=== PATIENT | male | born 1980 | race Caucasian/White ===

== ENCOUNTER → 2019-03-17 18:49 | Outpatient (CLI) | payer OTHER, SELFPAY ==
--- NOTE | 2019-03-17 | XR_ITS ---
XR ribs LT min 3V w CXR1V HISTORY: Left-sided rib pain ORDERING PHYSICIAN: Jo Chapman APRN PATIENT AGE: 38 years Comparison: None FINDINGS: A frontal view of the chest shows no acute finding. Multiple views of the Left ribs were obtained. No fracture or dislocation. No lytic or blastic change. IMPRESSION: Negative RIBS. If pain persists, consider follow-up exam in 7-[address] with 3-D reformats.
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
== END ==
PROVIDERS: PCP Nurse Practitioner Family; Visit Provider Nurse Practitioner Family
DX: S23.41XA Sprain of ribs, initial encounter (principal)
CPT/HCPCS: 71101

== ENCOUNTER 2020-06-05 16:03 | Emergency (ER) | payer MEDICAID, SELFPAY ==
[2020-06-05 16:04] VITALS: BP 163/93; PULSE 50; RESP 18; TEMP 36.8; O2SAT 98; BMI 29.5
--- NOTE | 2020-06-05 16:22 | HMH.EDGENADL ---
ED Disposition Clinical Impression: Right ureteral calculus, Nephrolithiasis Disposition: Home, Self-Care Condition on Discharge: Good Instructions: DI for Kidney Stones Additional Instructions: Additional instructions for KIDNEY STONE (URETERAL CALCULUS): See your physician as soon as possible for further evaluation. Drink plenty of fluids. Strain your urine and save any stones you catch. Return immediately if you develop a fever or have uncontrollable vomiting or uncontrollable pain. Additional instructions for CONTROLLED SUBSTANCES: You have been prescribed a medication that is a controlled substance. Controlled substances include pain medications known as opiates and sedative nerve medications known as benzodiazepines. Tramadol, fioricet, and gabapentin are also controlled substances. Some common opiates include: Codeine (such as Tylenol #3) Hydrocodone (Vicodin, Lortab, Lorcet, [place]) Oxycodone (Percocet, Percodan, Oxycodone, Oxy IR) Some common benzodiazepines include: Diazepam (Valium) Lorazepam (Ativan) Alprazolam (Xanax) Clonazepam (Klonopin) Oxazepam (Serax) All of these controlled substances are highly addictive and frequently abused. Misuse can and frequently does lead to addiction as well as overdose and . Medication should be stored in a locked cabinet or other secure storage unit. Do not store the medication in a motor vehicle. Short term supplies, 3 days or less, are prescribed because of the highly addictive nature of the medication. Any of the controlled substance medication NOT taken should be disposed of properly and NOT SAVED. The recommended method of disposing of unused medications is: Place the medicines in a sealable plastic bag. If the medicine is a solid, crush it or add water to dissolve it. Add something undesirable (cat litter, coffee grounds, etc.) Dispose of sealed bag in household trash Do not flush or pour unused medicines down a sink or drain. Controlled substances should not be shared, given away or sold. Because of the addictive nature and frequent abuse, these medications are sometimes stolen. These medications should be kept in a safe place where they cannot be stolen. Do not keep them in your car or purse. Lost or stolen prescriptions for controlled substances WILL NOT BE REFILLED in this emergency department, regardless of whether a police report was filed. Prescriptions: Oxycodone HCl/Acetaminophen [Percocet 7.5-325 mg Tablet] 1 each PO Q6HP PRN #20 tablet PRN Reason: Severe Pain Transmission Status: Sent to [facility] Tamsulosin HCl [Flomax 0.4mg capsule] 0.4 mg PO HS #10 cap.er.24h Transmission Status: Sent to [facility] Ondansetron [Zofran 4mg ODT] 4 mg PO TIDP PRN #10 tab.rapdis PRN Reason: Nausea And Vomiting Transmission Status: Pending to [facility] Referrals: PCP,No [Primary Care Provider] - Urbano Kauffman MD [Staff Physician] - - Critical Care Critical Care Time: No Attestation: On 06/05/20, the high probability of a clinically significant, sudden or life threatening deterioration of the following system(s) required my full and direct attention, intervention and personal management. The time I documented below is in addition to time spent performing reported procedures but includes the following listed in this critical care notation. Medical Decision Making - Medical Records Medical records reviewed: Yes: I reviewed the patient's medical records. - Bryan Inquiry Pt receiving controlled substance: Yes Bryan was queried for this patient: No Reason not queried -: Emergent pt cond-no time Risks and benefits of using a controlled substance: were not discussed with pt by me Vital Signs: 06/05/20 16:04 Temperature 98.2 F Temperature Source Oral Pulse Rate [Right] 50 L Respiratory Rate 18 Blood Pressure [Right Arm] 163/93 H Blood Pressure Mean [Right Arm] 116 02 Sat by Pulse Oximetry 98
--- NOTE | 2020-06-05 16:30 | CT_ITS ---
PROCEDURE: CT ABDOMEN PELVIS WO CON CLINICAL INDICATION: flank pain Right flank pain COMPARISON: ABDPELWO CT abdomen pelvis wo con from 04/21/2018 TECHNIQUE: Axial images obtained with sagittal and coronal reformats. All CT scans at the facility use one or more dose reduction, viz: automated exposure control, ma/kV adjustment per patient size (including targeted exams where dose is matched to indication, i.e. head), or iterative reconstruction technique. FINDINGS: LOWER THORAX: No acute finding ABDOMEN & PELVIS: The liver, spleen, adrenal glands, and pancreas have an unremarkable unenhanced appearance. There are numerous bilateral renal calculi measuring up to 5 mm in the mid polar region on the right and 10 mm in the lower pole on the left. There is a 2 cm hypodense nodule in the mid polar region of the right kidney consistent with a cyst with some milk of calcium layering posteriorly. There is moderate right hydronephrosis an ureteral dilatation secondary to a 8 mm stone in the mid aspect of the right ureter at the L3-L4 level. Unremarkable appendix. No intestinal obstruction or free air. There is mild thickening of the urinary bladder which may be due to nondistention versus cystitis no acute bony anomaly. IMPRESSION: 1. 8 mm stone in the mid aspect of the right ureter with moderate right hydronephrosis and proximal hydroureter. 2. Bilateral renal calculi with right renal cyst containing a calcification or milk of calcium posteriorly. 3. Mildly thickened urinary bladder wall nonspecific Dictated by: Thomas Perry MD 06/06/2020 07:37 Electronically signed by Thomas Perry MD in [place] 06/06/2020 07:37
[2020-06-05 16:46] LABS: Basophils % 0.2 % (0.1-2.0); Eosinophils # 0.1 K/mm3 (0.0-0.4); Eosinophils % 0.8 % (0.1-12.0); Hematocrit 44.1 % (42.0-52.0); Hemoglobin 15.9 g/dL (14.1-18.0); Lymphocytes # 1.6 K/mm3 (0.7-4.5); Lymphocytes % 11.4 % (10-50); Mean Corpuscular Volume 83.4 fl (80-94); Mean Platelet Volume 8.5 fl (7.4-10.4); Monocytes # 0.4 K/mm3 (0.1-1.0); Monocytes % 2.7 % (1.7-9.3); Neutrophils # 11.9 K/mm3 (1.8-7.8); Platelet Count 254 K/mm3 (142-424); Red Blood Count 5.28 M/mm3 (4.60-6.20); Red Cell Distribution Width 13.2 % (11.5-17.5); White Blood Count 14.1 K/mm3 (4.8-10.8)
[2020-06-05 16:47] LABS: MANUAL DIFFERENTIAL MANUAL DIFFERENTIAL (MANUAL DIFF)
[2020-06-05 16:48] LABS: Chloride 104 mmol/L (98-107)
[2020-06-05 16:49] LABS: Sodium 140 mmol/L (136-145)
[2020-06-05 16:51] LABS: Alanine Aminotransferase 17 U/L (12-78); Alkaline Phosphatase 90 U/L (38-126); Aspartate Amino Transferase 27 U/L (17-59); Bilirubin,Total 0.7 mg/dl (0.2-1.3); Blood Urea Nitrogen 16 mg/dl (9-20); Creatinine Clearance Estimated 117 mL/min (50-200); Estimated Glomerular Filt Rate 75 ml/min (>60); GFR (African American) 91 ML/MIN (>60)
[2020-06-05 16:52] LABS: Albumin Level 4.7 g/dl (3.5-5.0); Albumin/Globulin Ratio 1.3 (1.1-1.8); Calcium 9.9 mg/dl (8.4-10.2); Carbon Dioxide 29 mmol/L (22.0-30.0); Globulin 3.6 g/dL (1.3-3.2); Glucose 120 mg/dl (74-100); Lipase 70 U/L (23-300); Total Protein,Serum 8.3 g/dl (6.3-8.2)
[2020-06-05 16:56] LABS: Lymphocytes % 13 % (10-50); Monocytes % 3 % (2-9); Neutrophils % 84 % (42-76); Platelet Estimate Normal; RBC Morphology Normal; Total Cells Counted 100
[2020-06-05 18:08] VITALS: BP 143/85; PULSE 80; RESP 18; TEMP 36.6; O2SAT 98
== END 2020-06-05 18:09 | disposition home or self-care (01) ==
PROVIDERS: Emergency Provider Emergency Medicine
DX: N20.0 Calculus of kidney (principal); N20.1 Calculus of ureter; Z87.442 Personal history of urinary calculi; Z87.891 Personal history of nicotine dependence; Z79.899 Other long term (current) drug therapy
CPT/HCPCS: 74176; 80053; 83690; 85007; 85025; 96365; 96375; 99283; J2405

== ENCOUNTER 2020-07-23 00:09 | Observation (INO) | payer MEDICAID, SELFPAY ==
[2020-07-23] VITALS (21 sets, daily range): BP systolic 108–159; BP diastolic 66–95; PULSE 49–78; RESP 12–16; TEMP 36.2–37.1; O2SAT 95–100; BMI 31.3; BMI 27.7; BMI 27.5
--- NOTE | 2020-07-23 00:25 | CT_ITS ---
PROCEDURE: CT ABDOMEN PELVIS WO CON CLINICAL INDICATION: right flank pain COMPARISON: CT CT ABDOMEN PELVIS WO CON from 06/05/2020 TECHNIQUE: Axial images obtained with sagittal and coronal reformats. All CT scans at the facility use one or more dose reduction, viz: automated exposure control, ma/kV adjustment per patient size (including targeted exams where dose is matched to indication, i.e. head), or iterative reconstruction technique. FINDINGS: LOWER THORAX: No acute finding ABDOMEN & PELVIS: The liver, spleen, adrenal glands, and pancreas have an unremarkable appearance as does the gallbladder. There is moderate right hydronephrosis and hydroureter secondary to a 8 mm stone at the right ureterovesical junction. This may actually represent a cluster of small stones with a cluster measuring total of 8 mm. There is mild thickening of the urinary bladder wall nonspecific. There is bilateral nephrolithiasis with a 4 mm stone in the mid polar region of the right kidney and multiple stones in the left kidney the largest at 9 mm. There is a 2.7 cm right renal cyst. Unremarkable appendix. No intestinal obstruction or free air. No evidence of diverticulitis. There are few colonic diverticula. No acute bony findings. IMPRESSION: Bilateral nephrolithiasis with moderate right hydronephrosis and hydroureter secondary to a 9 mm stone or cluster of stones at the ureterovesical junction. Previously the stone on the right was in the mid ureter region. Dictated by: Thomas Perry MD 07/23/2020 07:06 Thomas Perry MD in [place] 07/23/2020 07:06
[2020-07-23 00:38] LABS: Microscopic, Urine URINE MICROSCOPIC (MICROSCOPIC)
[2020-07-23 00:51] LABS: Albumin Level 4.7 g/dl (3.5-5.0); Albumin/Globulin Ratio 1.2 (1.1-1.8); Alkaline Phosphatase 89 U/L (38-126); Amylase 90 U/L (30-110); Anion Gap 13.7 mEq/L (5-15); Aspartate Amino Transferase 30 U/L (17-59); Basophils % 0.2 % (0.1-2.0); Bilirubin,Total 0.6 mg/dl (0.2-1.3); Blood Urea Nitrogen 18 mg/dl (9-20); Calcium 9.6 mg/dl (8.4-10.2); Carbon Dioxide 30 mmol/L (22.0-30.0); Chloride 99 mmol/L (98-107); Creatinine Clearance Estimated 127 mL/min (50-200); Eosinophils # 0.1 K/mm3 (0.0-0.4); Eosinophils % 1.2 % (0.1-12.0); Estimated Glomerular Filt Rate 83 ml/min (>60); GFR (African American) 101 ML/MIN (>60); Globulin 3.8 g/dL (1.3-3.2); Glucose 102 mg/dl (74-100); Hematocrit 42.3 % (42.0-52.0); Hemoglobin 15.1 g/dL (14.1-18.0); Lipase 58 U/L (23-300); Lymphocytes # 2.7 K/mm3 (0.7-4.5); Lymphocytes % 33.7 % (10-50); Mean Corpuscular HGB Conc 35.7 g/dL (31.8-35.4); Mean Corpuscular Hemoglobin 30.4 pg (27.0-31.2); Mean Corpuscular Volume 85.2 fl (80-94); Mean Platelet Volume 8.2 fl (7.4-10.4); Monocytes # 0.3 K/mm3 (0.1-1.0); Monocytes % 4.1 % (1.7-9.3); Neutrophils # 4.8 K/mm3 (1.8-7.8); Neutrophils % 60.8 % (37.0-80.0); Platelet Count 215 K/mm3 (142-424); Potassium 3.7 mmoL/L (3.5-5.1); Red Blood Count 4.97 M/mm3 (4.60-6.20); Red Cell Distribution Width 13.1 % (11.5-17.5); Sodium 139 mmol/L (136-145); Total Protein,Serum 8.5 g/dl (6.3-8.2)
[2020-07-23 00:55] LABS: Appearance,Urine CLEAR (Clear); Bilirubin,Urine Negative (Negative); Blood, Urine 3+ (Negative); Color,Urine YELLOW (Yellow); Glucose,Urine (UA) Negative (Negative); Ketones,Urine Negative (Negative); Leukocyte Esterase,Urine Negative (Negative); Nitrate,Urine Negative (Negative); PH,Urine 5.5 (5.0-8.5); Protein,Urine 1+ (Negative); Specific Gravity, Urine >= 1.030 (1.005-1.030); Urobilinogen,Urine 0.2 EU/dl (0.2)
--- NOTE | 2020-07-23 01:01 | HMH.EDGENADL ---
ED Disposition Clinical Impression: Ureterolithiasis, Nephrolithiasis, Right ureteral calculus, Hydronephrosis concurrent with and due to calculi of kidney and ureter, Intractable pain Disposition: Admitted as Observation Condition on Discharge: Good Referrals: PCP,No [Primary Care Provider] - - Critical Care Critical Care Time: No Attestation: On 07/23/20, the high probability of a clinically significant, sudden or life threatening deterioration of the following system(s) required my full and direct attention, intervention and personal management. The time I documented below is in addition to time spent performing reported procedures but includes the following listed in this critical care notation. Medical Decision Making - Medical Records Medical records reviewed: Yes: I reviewed the patient's medical records. - Bryan Inquiry Pt receiving controlled substance: No Vital Signs: 07/23/20 00:18 Temperature 98.8 F Temperature Source Oral Pulse Rate [Right] 73 Respiratory Rate 16 Blood Pressure [Right Arm] 159/95 H Blood Pressure Mean [Right Arm] 116 Blood Pressure Source [Right Arm] Automatic Cuff Blood Pressure Position [Right Arm] Sitting 02 Sat by Pulse Oximetry 98 Oxygen Delivery Method Room Air - Lab Data Lab results reviewed: Yes: I reviewed the patient's lab results. Lab Results 07/23/20 00:20: Urine Color Yellow, Urine Appearance Clear, Urine pH 5.5, Ur Specific [place] >= 1.030, Urine Protein 1+, Urine Glucose (UA) Negative, Urine Ketones Negative, Urine Blood 3+, Urine Nitrate Negative, Urine Bilirubin Negative, Urine Urobilinogen 0.2, Ur Leukocyte Esterase Negative, Urine RBC 10-20, Urine WBC 3-5, Ur Squamous Epith Cells Occasional, Calcium Oxalate Crystal 2+, Urine Bacteria Trace 07/23/20 00:20: WBC 8.0, RBC 4.97, Hgb 15.1, Hct 42.3, MCV 85.2, MCH 30.4, MCHC 35.7 H, RDW 13.1, Plt Count 215, MPV 8.2, Neut % (Auto) 60.8, Lymph % (Auto) 33.7, [place] % (Auto) 4.1, Eos % (Auto) 1.2, Baso % (Auto) 0.2, Neut # (Auto) 4.8, Lymph # (Auto) 2.7, [place] # (Auto) 0.3, Eos # (Auto) 0.1, Baso # (Auto) 0.0 07/23/20 00:20: Sodium 139, Potassium 3.7, Chloride 99, Carbon Dioxide 30, Anion Gap 13.7, BUN 18, Creatinine 1.00, Estimated Creat Clear 127, Estimated GFR 83, Est GFR ( Amer) 101, Glucose 102 H, Calcium 9.6, Total Bilirubin 0.6, AST 30, ALT 17, Alkaline Phosphatase 89, Total Protein 8.5 H, Albumin 4.7, Globulin 3.8 H, Albumin/Globulin Ratio 1.2, Amylase 90, Lipase 58 Result diagrams: 07/23/20 00:20 07/23/20 00:20 Orders (Tests/Meds): ED MEDICATIONS Generic Name Dose Route Start Last Admin Trade Name Freq PRN Reason Stop Dose Admin Sodium Chloride 1,000 mls @ 999 mls/hr 07/23/20 00:30 07/23/20 00:33 Sod Chlor 0.9% 1000ml Bag IV 07/23/20 01:30 999 mls/hr .Q1H1M EULALIO Administration Discontinued Medications Generic Name Dose Route Start Last Admin Trade Name Freq PRN Reason Stop Dose Admin Hydromorphone HCl 1 mg 07/23/20 01:01 07/23/20 01:03 Dilaudid 2mg/Ml Syringe IV 07/23/20 01:02 1 mg ONCE ONE Administration Ketorolac Tromethamine 30 mg 07/23/20 00:25 07/23/20 00:33 Toradol 30mg/Ml Vial IV 07/23/20 00:26 30 mg ONCE ONE Administration Ondansetron HCl 4 mg 07/23/20 00:25 07/23/20 00:33 Zofran 4mg/2ml Vial IV 07/23/20 00:26 4 mg ONCE ONE Administration ORDERS Category Date Time Status CT abdomen pelvis wo con Stat Cat Scan 07/23/20 00:25 Taken Covid-19 IgG/IgM ([facility]) Stat Lab 07/23/20 01:00 Ordered - CT Data CT Scan: Abdomen, Pelvis Time Received: 00:[address] Reviewed: Yes: I have viewed the radiologist's interpretation Preliminary Findings: Abnormal (9 mm stone in the UVJ on the right mild hydronephrosis) Medical Decision Narrative: About this patient he agreed that he will do procedure tomorrow morning. I talked with Dr. Clarke for admission. General Adult HPI - General Chief complaint: PAIN Stated complaint: Thinks passi
[2020-07-23 01:03] LABS: Alanine Aminotransferase 17 U/L (12-78)
[2020-07-23 01:09] LABS: Bacteria,Urine Trace /lpf; Calcium Oxalate Crystals,Urine 2+ /lpf; Squamous Epithelial Cell,Urine Occasional #/hpf (0-5)
[2020-07-23 01:24] LABS: Coronavirus 19 IgG Antibody Negative (Negative); Coronavirus 19 IgM Antibody Negative (Negative)
--- NOTE | 2020-07-23 02:00 | PC.NURSE ---
patient up to floor via wheelchair.
--- NOTE | 2020-07-23 03:40 | PC.NURSE ---
DRAINING UO; PT. DENIES N/V/D, SOA, AND DIZZINESS. PT. STATES TOLERABLE PAIN AT 5/10; STATES DILAUDID IS MILDLY EFFECTIVE. NO COMPLAINTS AT THIS TIME.
[2020-07-23 06:16] LABS: Basophils % 0.3 % (0.1-2.0); Eosinophils # 0.1 K/mm3 (0.0-0.4); Eosinophils % 1.5 % (0.1-12.0); Hematocrit 39.9 % (42.0-52.0); Hemoglobin 13.9 g/dL (14.1-18.0); Lymphocytes % 41.5 % (10-50); Mean Corpuscular Hemoglobin 30.5 pg (27.0-31.2); Mean Corpuscular Volume 87.1 fl (80-94); Mean Platelet Volume 7.8 fl (7.4-10.4); Monocytes # 0.3 K/mm3 (0.1-1.0); Monocytes % 4.2 % (1.7-9.3); Neutrophils # 3.8 K/mm3 (1.8-7.8); Neutrophils % 52.5 % (37.0-80.0); Platelet Count 186 K/mm3 (142-424); Red Blood Count 4.58 M/mm3 (4.60-6.20); Red Cell Distribution Width 13.1 % (11.5-17.5); White Blood Count 7.2 K/mm3 (4.8-10.8)
[2020-07-23 06:24] LABS: Chloride 104 mmol/L (98-107); Potassium 4.1 mmoL/L (3.5-5.1); Sodium 139 mmol/L (136-145)
[2020-07-23 06:26] LABS: Blood Urea Nitrogen 17 mg/dl (9-20); Creatinine Clearance Estimated 112 mL/min (50-200); Estimated Glomerular Filt Rate 83 ml/min (>60); GFR (African American) 101 ML/MIN (>60)
[2020-07-23 06:27] LABS: Alanine Aminotransferase 12 U/L (12-78); Albumin Level 3.8 g/dl (3.5-5.0); Albumin/Globulin Ratio 1.3 (1.1-1.8); Alkaline Phosphatase 74 U/L (38-126); Anion Gap 10.1 mEq/L (5-15); Aspartate Amino Transferase 24 U/L (17-59); Bilirubin,Total 0.5 mg/dl (0.2-1.3); Calcium 9.1 mg/dl (8.4-10.2); Carbon Dioxide 29 mmol/L (22.0-30.0); Glucose 94 mg/dl (74-100); Total Protein,Serum 6.8 g/dl (6.3-8.2)
--- NOTE | 2020-07-23 07:26 | HMH.PHAVTE ---
[facility] Pharmacy VTE Monitoring - Patient Demographics Admission date: 07/23/20 Report Date: 07/23/20 Time: 07:26 Allergies/Adverse Reactions: Patient Allergies No Known Allergies Allergy (Unverified 11/13/17 15:32) Height: 1.7 m Weight: 79.634 kg Patient Problems: Current Active Problems Ureterolithiasis (Acute) Right ureteral calculus (Acute) Nephrolithiasis (Acute) Hydronephrosis concurrent with and due to calculi of kidney and ureter (Acute) Intractable pain (Acute) - VTE Risk Labs: VTE Related Lab Results Hgb 13.9 g/dL (14.1-18.0) L 07/23/20 05:45 Hct 39.9 % (42.0-52.0) L 07/23/20 05:45 Plt Count 186 K/mm3 (142-424) 07/23/20 05:45 BUN 17 mg/dl (9-20) 07/23/20 05:45 Creatinine 1.00 mg/dl (0.66-1.25) 07/23/20 05:45 Estimated Creat Clear 112 mL/min (50-200) 07/23/20 05:45 Was VTE Risk Assessment Performed: Yes VTE Score: 1 VTE Risk Level: Very Low Risk - Prophylaxis VTE Prophylaxis Ordered?: Yes Types of VTE Prophylaxis: TEDS Knee High Location of Applied Device: Bilateral Lower Extremeties
--- NOTE | 2020-07-23 08:38 | HMH.HP ---
*Admission Date: 07/23/20 <Kamla Betancur 07/23/20 08:47> *Chief complaint: right flank and groin pain <Kamla Betancur 07/23/20 08:47> *History of present illness: Mr. Terrazas is a 40-year-old male and his only medical history is of kidney stones. He states he usually passes a few stones a year and just passed a stone in May. He states the pain began in his right flank radiating into his groin last night at about 1030. He presented to the ER and was found to have a 9 mm kidney stone. He was admitted for IV fluids and pain control as well as a urology consult. <Kamla Betancur 07/23/20 08:47> [facility] History I have reviewed the patient's past medical history: Yes <Kamla Betancur 07/23/20 08:47> Medical History: Reports:: Kidney Stones Denies:: Cancer, Diabetes Mellitus Type 1, Diabetes Mellitus Type 2, Internal Pacemaker, MRSA <Kamla Betancur 07/23/20 08:47> *Have you ever received a pneumonia vaccine?: No <Kamla Betancur 07/23/20 08:47> *Have you received a flu vaccine this season?: No <Kamla Betancur 07/23/20 08:47> Laterality Cases: Right: Arthroscopy Knee <Kamla Betancur 07/23/20 08:47> Other Surgeries: Yes: Other (Vasectomy). No: Pacemaker <Kamla Betancur 07/23/20 08:47> Amputation: No <Kamla Betancur 07/23/20 08:47> Fractures: No <Kamla Betancur 07/23/20 08:47> - *Social History Last grade of school completed: 11th or 12th <Kamla Betancur 07/23/20 08:47> Smoking Status: Former smoker <Kamla Betancur 07/23/20 08:47> Alcohol Intake: never <Kamla Betancur 07/23/20 08:47> *Occupational Status:: employed <Kamla Betancur 07/23/20 08:47> Housing: house <Kamla Betancur 07/23/20 08:47> Household Members: significant other, children <Kamla Betancur 07/23/20 08:47> *Travel in the last 8 weeks: None <Kamla Betancur 07/23/20 08:47> Family Hx:: Cancer, Diabetes, Heart Attack, Hyperlipidemia, Hypertension, Stroke, Thyroid Disorder, Substance abuse, Alcoholism, Mental illness <Kamla Betancur 07/23/20 08:47> Review of Systems - Constitutional Denies fatigue, Denies fever(s), Denies weakness <Kamla Betancur 07/23/20 08:47> - Eyes Denies blurry vision, Denies double vision <Kamla Betancur 07/23/20 08:47> - ENT Denies nasal congestion, Denies sore throat <Kamla Betancur 07/23/20 08:47> - *Cardiovascular Denies chest pain, Denies shortness of breath <Kamla Betancur 07/23/20 08:47> - *Respiratory Denies cough, Denies shortness of breath <Kamla Betancur 07/23/20 08:47> - *Gastrointestinal Reports abdominal pain (RLQ), Denies loose stools, Denies nausea, Denies vomiting <Kamla Betancur 07/23/20 08:47> - *Genitourinary Reports difficulty urinating, Reports painful urination <Kamla Betancur 07/23/20 08:47> - *Musculoskeletal Reports back pain (right flank), Denies joint pain <Kamla Betancur 07/23/20 08:47> - *Neurologic Reports abnormal hearing, Denies dizziness, Denies headache(s), Denies weakness <Kamla Betancur 07/23/20 08:47> Meds Home Medications Medication Instructions Recorded Confirmed Type No Known Home Medications 07/23/20 07/23/20 History <Erich Clarke - 07/23/20 13:14> Allergies Allergy/AdvReac Type Severity Reaction Status Date / Time No Known Allergies Allergy Unverified 11/13/17 15:32 <Erich Clarke - 07/23/20 13:14> Exam Vital signs and Labs for Last 24 Hours: Temp Pulse Resp BP Pulse Ox 97.2 F L 55 L 16 120/69 100 07/23/20 12:54 07/23/20 12:54 07/23/20 12:54 07/23/20 12:54 07/23/20 07:11 Laboratory Results - last 24 hr 07/23/20 00:20: Urine Color Yellow, Urine Appearance Clear, Urine pH 5.5, Ur Specific [place] >= 1.030, Urine Protein 1+, Urine Glucose (UA) Negative, Urine Ketones Negative, Urine Blood 3+, Urine Nitrate Negative, Urine Bilirubin Negative, Urine Urobilinogen 0.2, Ur Leukocyte Esterase Negative, Urine RBC 10-20, Urine WBC 3-5, Ur Squamous Epith Cells Occasional, Calcium Oxal
--- NOTE | 2020-07-23 12:22 | HMH.ANESCL ---
[facility] Anesthesia Checklist - Patient Identification Patient Identification: Arm Band - Structural Data Admitted From: Inpatient Planned Operative Procedure/s: Right Ureteroscopy with Laser Stone Extraction Consent for Planned Operative Procedure(s) Verified: Yes Verified Documents: Surgical Consent, History and Physical - NPO Status Verified Time NPO: 00:00 - Additional verifications Anesthesia Reactions: No - Airway Assessment C-Spine Mobility Assessed: Yes (mp2) TMJ Mobility Assessed: Yes Dentition: Good Dentition - Neurological Assessment Level of Consciousness: Awake, Alert - Anesthesia Plan Anesthesia Risk discussed: Yes Anesthesia Plan: Verified ASA Class: I Anesthesia Type: General [facility] History I have reviewed the patient's past medical history: Yes Medical History: Reports:: Kidney Stones Denies:: Cancer, Diabetes Mellitus Type 1, Diabetes Mellitus Type 2, Internal Pacemaker, MRSA *Have you ever received a pneumonia vaccine?: No *Have you received a flu vaccine this season?: No Anesthesia experience/problems:: nac Laterality Cases: Right: Arthroscopy Knee Other Surgeries: Yes: Other (Vasectomy). No: Pacemaker Amputation: No Fractures: No - *Social History Last grade of school completed: 11th or 12th Smoking Status: Former smoker Alcohol Intake: never Substance Use Type: denies use *Occupational Status:: employed Housing: house Household Members: significant other, children *Travel in the last 8 weeks: None Family Hx:: Cancer, Diabetes, Heart Attack, Hyperlipidemia, Hypertension, Stroke, Thyroid Disorder, Substance abuse, Alcoholism, Mental illness
--- NOTE | 2020-07-23 12:52 | FL_ITS ---
PROCEDURE: FL CYSTOGRAM NON-VOIDING CLINICAL INDICATION: STONE EXTRACTION RIGHT SIDE COMPARISON: CT CT ABDOMEN PELVIS WO CON from 07/23/2020 FINDINGS: Fluoroscopy time: 1 second Single image submitted with the C-arm demonstrates the cystoscope in place with a wire along the mid and distal right ureter IMPRESSION: C-arm utilization with cystoscopy. Dictated by: Thomas Perry MD 07/23/2020 14:08 Thomas Perry MD in [place] 07/23/2020 14:08
--- NOTE | 2020-07-23 12:53 | HMH.ANESI ---
[facility] Anesthesia Record Part I Intake, IV Amount: 600 Estimated blood loss (mL): 0 Urine output (mL): 0 Blood Pressure: 120/69 SaO2: 98 Pulse Rate: 55 Respiratory Rate: 16 Temperature: 97.2 F Patient is:: Drowsy, Stable Stable to PACU at:: 12:50
--- NOTE | 2020-07-23 13:07 | HMH.CONS ---
*Admission Date: 07/23/20 *Reason for consult:: 8 mm right distal ureteral stone *History of present illness: Patient is a 40-year-old white male admitted to the hospital last evening after the acute onset of right flank pain yesterday. He states a history of stones but has been able to pass them. CT scan revealed an 8 mm stone at the right UVJ. There is also small stones noted in the left kidney with the largest was 9 mm. Patient has continued to have some mild colicky symptoms overnight. His white count was normal on admission and his creatinine was normal as well. [facility] History Medical History: Reports:: Kidney Stones Denies:: Cancer, Diabetes Mellitus Type 1, Diabetes Mellitus Type 2, Internal Pacemaker, MRSA *Have you ever received a pneumonia vaccine?: No *Have you received a flu vaccine this season?: No Anesthesia experience/problems:: nac Laterality Cases: Right: Arthroscopy Knee Other Surgeries: Yes: Other (Vasectomy). No: Pacemaker Amputation: No Fractures: No - *Social History Last grade of school completed: 11th or 12th Smoking Status: Former smoker Alcohol Intake: never Substance Use Type: denies use *Occupational Status:: employed Housing: house Household Members: significant other, children *Travel in the last 8 weeks: None Family Hx:: Cancer, Diabetes, Heart Attack, Hyperlipidemia, Hypertension, Stroke, Thyroid Disorder, Substance abuse, Alcoholism, Mental illness Review of Systems - Review of Systems Review of systems:: pertinent systems reviewed and negative unless documented below - *Neurologic Reports abnormal hearing, Denies dizziness, Denies headache(s), Denies weakness Meds Home Medications Medication Instructions Recorded Confirmed Type No Known Home Medications 07/23/20 07/23/20 History Allergies Allergy/AdvReac Type Severity Reaction Status Date / Time No Known Allergies Allergy Unverified 11/13/17 15:32 Exam Vital signs and Labs for Last 24 Hours: Temp Pulse Resp BP Pulse Ox 97.2 F L 55 L 16 120/69 100 07/23/20 12:54 07/23/20 12:54 07/23/20 12:54 07/23/20 12:54 07/23/20 07:11 Laboratory Results - last 24 hr 07/23/20 00:20: Urine Color Yellow, Urine Appearance Clear, Urine pH 5.5, Ur Specific [place] >= 1.030, Urine Protein 1+, Urine Glucose (UA) Negative, Urine Ketones Negative, Urine Blood 3+, Urine Nitrate Negative, Urine Bilirubin Negative, Urine Urobilinogen 0.2, Ur Leukocyte Esterase Negative, Urine RBC 10-20, Urine WBC 3-5, Ur Squamous Epith Cells Occasional, Calcium Oxalate Crystal 2+, Urine Bacteria Trace 07/23/20 00:20: WBC 8.0, RBC 4.97, Hgb 15.1, Hct 42.3, MCV 85.2, MCH 30.4, MCHC 35.7 H, RDW 13.1, Plt Count 215, MPV 8.2, Neut % (Auto) 60.8, Lymph % (Auto) 33.7, [place] % (Auto) 4.1, Eos % (Auto) 1.2, Baso % (Auto) 0.2, Neut # (Auto) 4.8, Lymph # (Auto) 2.7, [place] # (Auto) 0.3, Eos # (Auto) 0.1, Baso # (Auto) 0.0 07/23/20 00:20: Sodium 139, Potassium 3.7, Chloride 99, Carbon Dioxide 30, Anion Gap 13.7, BUN 18, Creatinine 1.00, Estimated Creat Clear 127, Estimated GFR 83, Est GFR ( Amer) 101, Glucose 102 H, Calcium 9.6, Total Bilirubin 0.6, AST 30, ALT 17, Alkaline Phosphatase 89, Total Protein 8.5 H, Albumin 4.7, Globulin 3.8 H, Albumin/Globulin Ratio 1.2, Amylase 90, Lipase 58 07/23/20 00:20: SARS-CoV-2 IgG Ab (Rapid) Negative, SARS-CoV-2 IgM Ab (Rapid) Negative 07/23/20 05:45: WBC 7.2, RBC 4.58 L, Hgb 13.9 L, Hct 39.9 L, MCV 87.1, MCH 30.5, MCHC 35.0, RDW 13.1, Plt Count 186, MPV 7.8, Neut % (Auto) 52.5, Lymph % (Auto) 41.5, [place] % (Auto) 4.2, Eos % (Auto) 1.5, Baso % (Auto) 0.3, Neut # (Auto) 3.8, Lymph # (Auto) 3.0, [place] # (Auto) 0.3, Eos # (Auto) 0.1, Baso # (Auto) 0.0 07/23/20 05:45: Sodium 139, Potassium 4.1, Chloride 104, Carbon Dioxide 29, BUN 17, Creatinine 1.00, Estimated Creat Clear 112, Estimated GFR 83, Est GFR ( Amer) 101, Glucose 94, Calcium 9.1, Total Bilirubin 0.5, AST 24, ALT 12 D, Alkaline Phosphatase 74, Total Protein 6.8, Albumin 3.8
--- NOTE | 2020-07-23 13:11 | HMH.OPNOTE ---
Date of procedure: 07/23/20 Pre-op Diagnosis:: 8 mm right distal ureteral stone Post-op Diagnosis:: Same Procedure performed:: Right ureteroscopy with laser lithotripsy of ureteral stone, stone extraction. Surgeon:: Urbano Kauffman MD WATER TANKER DRIVER:: Melchor Forte Anesthesia: GETA Estimated blood loss (mL): 0 Clinical Note:: 40-year-old white male admitted last evening with right flank pain. CT scan reveals a obstructing 8 mm right distal ureteral stone with hydroureteronephrosis. Operative findings:: 8 mm right distal ureteral stone Operative note:: Patient taken to the operating room after informed consent was obtained. Is placed on the operating table in the supine position and general anesthesia administered. He had been given preoperative IV antibiotics earlier this morning. Sequential compression devices were placed. Was then placed into the dorsolithotomy edition prepped and draped in the standard surgical fashion. The 22 Palestinian cystoscope was attempted be passed into the urethra but there was some distal urethral stenosis. The urethra was dilated with the 22 and 24 Palestinian [place] sounds without difficulty. The 22 Palestinian scope was then passed into the urethra and into the bladder without difficulty. Bladder was examined in a systematic fashion. There was evidence of some edema along the right trigone. The left trigone was normal and there was no other abnormalities noted in the bladder. The right ureteral orifice was cannulated with a 0.035 sensor guidewire and passed by the stone without difficulty. The cystoscope was then removed and our semirigid ureteroscope was passed per side the wire and into the penis and into the bladder without difficulty. We were able to navigate the right ureter and up into the ureter up to the level of the stone. Only one stone was noted. It appeared to be a little larger to get through the distal ureter so the 200 nm laser fiber was used to fragment the stone into small fragments. A 2.4 Palestinian stone basket was then used to remove all the stone fragments into the bladder. At the end of the case there did appear to be urine coming from the right ureter so a stent was not placed. The ureteroscope and the guidewire was removed. The bladder was drained. Patient tolerated procedure well no complications. Condition: stable Disposition: PACU Specimens:: None Complications:: None
--- NOTE | 2020-07-23 17:22 | HMH.ANESII ---
[facility] Anesthesia Record Part II Discharge Time: 13:30 Destination: Medical Surgical Department PACU nurse assessment reviewed?: Yes Patient Condition:: Good Anesthesia Complications:: None Swallowing reflex intact?: Yes Cyanosis?: No Blood Pressure: 136/95 Pulse Rate: 62 Temperature: 97.9 F Mental Status: Alert & Oriented Pain level:: 0 Nausea and/or vomitting:: None Intake, IV Amount: 0
--- NOTE | 2020-07-23 20:01 | PC.NURSE ---
THIS RN PROVIDED D/C INSTRUCTIONS TO PREVENT INFECTION AND TO COMPLETE COURSE OF ANTIBIOTICS. THIS RN CONTINUED TO STRAIN URINE UNTIL D/C. PATIENT PASSED 5 SMALL STONES ALONG WITH SMALL BLOOD CLOTS. THIS RN ENCOURAGED PATIENT TO DRINK PLENTY OF FLUIDS. NO OTHER CONCERNS AT D/C.
--- NOTE | 2020-07-26 14:50 | HMH.DCSUM ---
General - General Admission date:: 07/23/20 <Erich Clarke - 07/27/20 08:20> 07/23/20 <GypsyKamla - 07/26/20 14:55> Discharge date: 07/23/20 <GypsyKamla - 07/26/20 14:55> HPI HPI: Mr. Terrazas is a 40-year-old male and his only medical history is of kidney stones. He states he usually passes a few stones a year and just passed a stone in May. He states the pain began in his right flank radiating into his groin last night at about 1030. He presented to the ER and was found to have a 9 mm kidney stone. He was admitted for IV fluids and pain control as well as a urology consult. <Kamla Betancur - 07/26/20 14:55> Hospital Course Hospital Course: The patient was started on IV fluids and pain control and Dr. Kauffman was consulted. He was seen by Dr. Kauffman who performed a ureteroscopy with stone extraction. The patient tolerated the procedure well and was stable to be discharged with a follow-up with Dr. Kauffman. <Kamla Betancur - 07/26/20 14:55> Objective Vital signs: Temp Pulse Resp BP Pulse Ox 97.9 F 69 16 127/80 99 07/23/20 17:24 07/23/20 17:55 07/23/20 17:55 07/23/20 17:55 07/23/20 17:55 <Erich Clarke - 07/27/20 08:20> Temp Pulse Resp BP Pulse Ox 97.9 F 69 16 127/80 99 07/23/20 17:24 07/23/20 17:55 07/23/20 17:55 07/23/20 17:55 07/23/20 17:55 <Kamla Betancur - 07/26/20 14:55> Narrative: - Constitutional no acute distress - *Routine HEENT Exam Head: Present: normocephalic Eye: Present: EOMI, PERRL ENT: Present: mucous membranes dry - *Routine Neck Exam Present: supple. Absent: lymphadenopathy - *Routine Respiratory Exam Present: CTA bilaterally - *Routine Cardiovascular Exam Present: RRR - *Routine Abdominal Exam Present: soft, normoactive bowel sounds, tenderness (RLQ pain) - *Routine Extremities Exam Absent: cyanosis, clubbing, edema - *Routine Skin Exam Present: warm. Absent: rash - *Routine Neurological Exam Present: alert, oriented X3 <Kamla Betancur - 07/26/20 14:55> DS: Diagnosis - Discharge Diagnosis (1) Ureterolithiasis Status: Acute (2) Hydronephrosis concurrent with and due to calculi of kidney and ureter Status: Acute (3) Intractable pain Status: Acute (4) Hematuria Status: Acute <Kamla Betancur - 07/26/20 14:50> (1) Ureterolithiasis Status: Acute (2) Hydronephrosis concurrent with and due to calculi of kidney and ureter Status: Acute (3) Intractable pain Status: Acute (4) Hematuria Status: Acute <Erich Clarke - 07/27/20 08:20> Discharge Plan - Patient Discharge Instructions ACTIVITY: Continue current activity, Other (Strain urine) <Kamla Betancur 07/26/20 14:55> DIET: continue same diet <Kamla Betancur 07/26/20 14:55> Patient Instructions: DI for Kidney Stones <Erich Clarke - 07/27/20 08:20> Forms: <Erich Clarke - 07/27/20 08:20> - Follow up Plan Follow up with: Urbano Kauffman MD [Staff Physician] - 07/30/20 1:15 pm <Erich Clarke - 07/27/20 08:20> Disposition: Home, Self-Care <Erich Clarke - 07/27/20 08:20> Home Medications: Home Medications Medication Instructions Recorded Confirmed Type cephALEXin [Keflex 500mg Cap] 500 mg PO BID #20 cap 07/23/20 Rx <Erich Clarke - 07/27/20 08:20> Prescriptions/Medication Reconciliation: New cephALEXin [Keflex 500mg Cap] 500 mg PO BID #20 cap <Erich Clarke - 07/27/20 08:20> - Problem Reconciliation Problems Reviewed?: Yes <Erich Clarke - 07/27/20 08:20> Yes <Kamla Betancur - 07/26/20 14:55> - Additional Information Additional Information: Patient seen and examined. Concur with plan for discharge as outlined above. <Erich Clarke - 07/27/20 08:20>
== END 2020-07-23 18:16 | disposition home or self-care (01) ==
LOC: ER 01:05 → 2ND 05:22
PROVIDERS: Urology; Admitting Provider Family Medicine; Emergency Provider Family Medicine; Visit Provider Family Medicine
PROC: (CPT 52352; principal; 2020-07-23 11:00)
DX: N13.2 Hydronephrosis with renal and ureteral calculous obstruction (principal); R31.1 Benign essential microscopic hematuria
CPT/HCPCS: 52353; 52352; 36415; 74176; 74430; 76000; 80053; 81001; 82150; 83690; 85025; 86328; 96365; 96375; 99284; G0378; J2405

== ENCOUNTER 2021-01-31 20:56 | Emergency (ER) | payer OTHER, SELFPAY ==
[2021-01-31 21:06] VITALS: BP 146/90; PULSE 69; RESP 16; TEMP 37.2; O2SAT 100; BMI 29.7
--- NOTE | 2021-01-31 21:17 | CT_ITS ---
PROCEDURE: CT ABDOMEN PELVIS WO CON CLINICAL INDICATION: flank pain Right flank pain COMPARISON: CT CT ABDOMEN PELVIS WO CON from 07/23/2020 TECHNIQUE: Axial images obtained with sagittal and coronal reformats. All CT scans at the facility use one or more dose reduction, viz: automated exposure control, ma/kV adjustment per patient size (including targeted exams where dose is matched to indication, i.e. head), or iterative reconstruction technique. FINDINGS: LOWER THORAX: No acute finding ABDOMEN & PELVIS: The liver, gallbladder, spleen, adrenal glands, and pancreas have an unremarkable appearance. Bilateral renal calculi are present. There is a 3 mm stone in the lower pole on the right. Multiple stones are present on the left with the largest in the lower pole at 8 mm. No ureteral calculi.. No calculi evident within the urinary bladder. No intestinal obstruction or free air. No evidence of appendicitis. No acute bony findings. IMPRESSION: Bilateral nonobstructing renal calculi. No ureteral calculi identified. Dictated by: Thomas Perry MD 02/01/2021 06:27 Thomas Perry MD in [place] 02/01/2021 06:27
[2021-01-31 21:27] LABS: Microscopic, Urine URINE MICROSCOPIC (MICROSCOPIC)
[2021-01-31 21:30] LABS: Basophils % 0.2 % (0.1-2.0); Bilirubin,Urine Negative (Negative); Blood, Urine Negative (Negative); Color,Urine YELLOW (Yellow); Eosinophils % 0.4 % (0.1-12.0); Glucose,Urine (UA) Negative (Negative); Hematocrit 42.6 % (42.0-52.0); Hemoglobin 14.4 g/dL (14.1-18.0); Ketones,Urine Negative (Negative); Leukocyte Esterase,Urine Negative (Negative); Lymphocytes # 1.5 K/mm3 (0.7-4.5); Lymphocytes % 20.6 % (10-50); Mean Corpuscular HGB Conc 33.8 g/dL (31.8-35.4); Mean Corpuscular Hemoglobin 29.4 pg (27.0-31.2); Mean Corpuscular Volume 87.1 fl (80-94); Monocytes # 0.2 K/mm3 (0.1-1.0); Monocytes % 2.8 % (1.7-9.3); Neutrophils # 5.4 K/mm3 (1.8-7.8); Neutrophils % 75.8 % (37.0-80.0); Nitrate,Urine Negative (Negative); Platelet Count 220 K/mm3 (142-424); Protein,Urine Negative (Negative); Red Blood Count 4.89 M/mm3 (4.60-6.20); Red Cell Distribution Width 13.4 % (11.5-17.5); Urobilinogen,Urine 0.2 EU/dl (0.2); White Blood Count 7.1 K/mm3 (4.8-10.8)
[2021-01-31 21:31] LABS: Appearance,Urine Slightly Cloudy (Clear)
[2021-01-31 21:35] LABS: Alanine Aminotransferase 18 U/L (12-78); Albumin Level 4.9 g/dl (3.5-5.0); Albumin/Globulin Ratio 1.3 (1.1-1.8); Alkaline Phosphatase 84 U/L (38-126); Amylase 74 U/L (30-110); Aspartate Amino Transferase 28 U/L (17-59); Bilirubin,Total 0.5 mg/dl (0.2-1.3); Blood Urea Nitrogen 12 mg/dl (9-20); Calcium 9.7 mg/dl (8.4-10.2); Carbon Dioxide 28 mmol/L (22.0-30.0); Chloride 105 mmol/L (98-107); Creatinine Clearance Estimated 121 mL/min (50-200); Estimated Glomerular Filt Rate 83 ml/min (>60); GFR (African American) 101 ML/MIN (>60); Globulin 3.7 g/dL (1.3-3.2); Glucose 151 mg/dl (74-100); Lipase 80 U/L (23-300); Sodium 142 mmol/L (136-145); Total Protein,Serum 8.6 g/dl (6.3-8.2)
[2021-01-31 21:41] LABS: C-Reactive Protein 1.8 mg/L (0-4)
[2021-01-31 21:51] LABS: Amorphous Sediment,Urine 1+ /lpf; Bacteria,Urine Trace /lpf; WBC,Urine Occasional #/hpf (0-3)
[2021-01-31 21:54] LABS: Procalcitonin 0.038 ng/mL (0.0-2.0)
[2021-01-31 22:29] LABS: Erythrocyte Sedimentation Rate 19 mm/hr (0-15)
--- NOTE | 2021-01-31 23:01 | HMH.EDGENADL ---
ED Disposition Clinical Impression: Acute flank pain Disposition: Home, Self-Care Condition on Discharge: Good Instructions: DI for Flank Pain Additional Instructions: see pcp for follow up Referrals: PCP,No [Primary Care Provider] - Urbano Kauffman MD [Staff Physician] - - Critical Care Critical Care Time: No Attestation: On 01/31/21, the high probability of a clinically significant, sudden or life threatening deterioration of the following system(s) required my full and direct attention, intervention and personal management. The time I documented below is in addition to time spent performing reported procedures but includes the following listed in this critical care notation. Medical Decision Making - Medical Records Medical records reviewed: Yes: I reviewed the patient's medical records. - Bryan Inquiry Pt receiving controlled substance: No Vital Signs: 01/31/21 21:06 Temperature 98.9 F Temperature Source Oral Pulse Rate [Right] 69 Respiratory Rate 16 Blood Pressure [Right Arm] 146/90 H Blood Pressure Mean [Right Arm] 108 Blood Pressure Source [Right Arm] Automatic Cuff Blood Pressure Position [Right Arm] Sitting 02 Sat by Pulse Oximetry 100 Oxygen Delivery Method Room Air - Lab Data Lab results reviewed: Yes: I reviewed the patient's lab results. Lab Results 01/31/21 21:15: Urine Color Yellow, Urine Appearance Slightly cloudy, Urine pH 7.0, Ur Specific [place] 1.020, Urine Protein Negative, Urine Glucose (UA) Negative, Urine Ketones Negative, Urine Blood Negative, Urine Nitrate Negative, Urine Bilirubin Negative, Urine Urobilinogen 0.2, Ur Leukocyte Esterase Negative, Urine WBC Occasional, Amorphous Sediment 1+, Urine Bacteria Trace 01/31/21 21:15: WBC 7.1, RBC 4.89, Hgb 14.4, Hct 42.6, MCV 87.1, MCH 29.4, MCHC 33.8, RDW 13.4, Plt Count 220, MPV 8.0, Neut % (Auto) 75.8, Lymph % (Auto) 20.6, [place] % (Auto) 2.8, Eos % (Auto) 0.4, Baso % (Auto) 0.2, Neut # (Auto) 5.4, Lymph # (Auto) 1.5, [place] # (Auto) 0.2, Eos # (Auto) 0.0, Baso # (Auto) 0.0, ESR 19 H 01/31/21 21:15: Sodium 142, Potassium 4.0, Chloride 105, Carbon Dioxide 28, Anion Gap 13.0, BUN 12, Creatinine 1.00, Estimated Creat Clear 121, Estimated GFR 83, Est GFR ( Amer) 101, Glucose 151 H, Calcium 9.7, Total Bilirubin 0.5, AST 28, ALT 18, Alkaline Phosphatase 84, C-Reactive Protein 1.8, Total Protein 8.6 H D, Albumin 4.9, Globulin 3.7 H, Albumin/Globulin Ratio 1.3, Amylase 74, Lipase 80, Procalcitonin 0.038 Result diagrams: 01/31/21 21:15 01/31/21 21:15 Orders (Tests/Meds): ED MEDICATIONS Generic Name Dose Route Start Last Admin Trade Name Freq PRN Reason Stop Dose Admin Sodium Chloride 1,000 mls @ 999 mls/hr 01/31/21 21:30 01/31/21 21:21 Sod Chlor 0.9% 1000ml Bag IV 01/31/21 22:30 999 mls/hr .Q1H1M EULALIO Administration Discontinued Medications Generic Name Dose Route Start Last Admin Trade Name Freq PRN Reason Stop Dose Admin Ketorolac Tromethamine 30 mg 01/31/21 21:17 01/31/21 21:21 Ketorolac 30mg/Ml Vial IV 01/31/21 21:18 30 mg ONCE ONE Administration Ondansetron HCl 4 mg 01/31/21 21:17 01/31/21 21:21 Ondansetron 4mg/2ml Vial IV 01/31/21 21:18 4 mg ONCE ONE Administration ORDERS Category Date Time Status CT abdomen pelvis wo con Stat Cat Scan 01/31/21 21:17 Taken - CT Data CT Scan: Abdomen, Pelvis Time Received: 23:[address] Reviewed: Yes: I have viewed the radiologist's interpretation Preliminary Findings: Abnormal (see report ) General Adult HPI - General Chief complaint: PAIN Stated complaint: kIDNEY PAIN Time Seen by Provider: 01/31/21 23:01 Mode of Arrival: Ambulatory Source of Information: Patient, Medical Record Limitations: No Limitations Description of Symptoms (Recalled from ER Triage Doc. by RN): Pt states he has off and on left flank pain for about an hour. Pt states he's had these symptoms in the past and has passes multiple renal calculi - History of P
[2021-01-31 23:17] VITALS: BP 133/87; PULSE 72; RESP 20; TEMP 37
== END 2021-01-31 23:19 | disposition home or self-care (01) ==
PROVIDERS: Emergency Provider Emergency Medicine
DX: N20.0 Calculus of kidney (principal); Z87.442 Personal history of urinary calculi; Z87.891 Personal history of nicotine dependence
CPT/HCPCS: 74176; 80053; 81001; 82150; 83690; 84145; 85025; 85651; 86140; 96365; 96375; 99283; J2405

== ENCOUNTER → 2021-02-10 09:40 | Outpatient (CLI) | payer OTHER, SELFPAY ==
--- NOTE | 2021-02-10 09:45 | XR_ITS ---
PROCEDURE: XR KUB CLINICAL INDICATION: kidney stone Right-sided pain COMPARISON: CT CT ABDOMEN PELVIS WO CON from 01/31/2021 FINDINGS: There are multiple small left renal calculi along with a 7 mm calculus in the lower pole of the left kidney. Small stone noted in the mid polar region of the right kidney at 3 mm. No definite ureteral calculi. IMPRESSION: Bilateral nephrolithiasis Dictated by: Thomas Perry MD 02/10/2021 18:12 Thomas Perry MD in [place] 02/10/2021 18:12
== END ==
PROVIDERS: PCP Nurse Practitioner Family; Visit Provider Urology
DX: N20.0 Calculus of kidney (principal)
CPT/HCPCS: 74018

== ENCOUNTER 2021-04-25 16:54 | Emergency (ER) | payer OTHER, SELFPAY ==
[2021-04-25 16:55] VITALS: BP 114/81; PULSE 76; RESP 16; TEMP 37; O2SAT 98; BMI 28.1
[2021-04-25 17:10] VITALS: BP 114/81; PULSE 76; RESP 16; TEMP 37; O2SAT 98; BMI 28.2
--- NOTE | 2021-04-25 17:37 | HMH.EDUTC ---
[facility] [place] Clinical Impression: Laceration of mouth Qualifiers: Encounter type: initial encounter Qualified Code(s): S01.512A - Laceration without foreign body of oral cavity, initial encounter Disposition: Home, Self-Care Condition on Discharge: Good Instructions: How to Care for a Laceration After Repair, DI for Laceration Repair Additional Instructions: The sutures should disolve in about 7 to 10 days. Follow up with your primary care doctor or return here for any problems. Take the antibiotics as directed. Take the ibuprofen for pain. I sent in a prescription to your pharmacy. GO TO THE ER FOR ANY WORSENING SYMPTOMS OR CONCERNS Prescriptions: Ibuprofen [Ibuprofen 800mg Tablet] 800 mg PO Q8HP PRN #30 tab PRN Reason: Moderate Pain Transmission Status: Received by [facility] Amoxicillin/Potassium Clav [Augmentin 875-125 Tablet] 1 tab PO Q12H 10 Days #20 tab Transmission Status: Received by [facility] Referrals: Noa Puga [Primary Care Provider] - Time of Disposition: 18:08 Medical Decision Making - Medical Records Medical records reviewed: No: I reviewed the patient's medical records. - Bryan Inquiry Pt receiving controlled substance: No Vital Signs: 04/25/21 16:55 04/25/21 17:10 04/25/21 18:11 Temperature 98.6 F 98.6 F 98.6 F Temperature Source Oral Oral Pulse Rate 76 Pulse Rate [Radial] 76 76 Respiratory Rate 16 16 16 Blood Pressure 114/81 Blood Pressure [Right Arm] 114/81 114/81 Blood Pressure Mean [Right Arm] 92 92 Blood Pressure Source [Right Arm] Automatic Cuff Blood Pressure Position [Right Arm] Sitting Sitting 02 Sat by Pulse Oximetry 98 98 Oxygen Delivery Method Room Air Room Air [facility] [place] - General Stated complaint: AO 04/25@1500 Lac to Lip Time Seen by Provider: 04/25/21 17:37 Mode of Arrival: Ambulatory Source of Information: Patient Limitations: No Limitations Description of Symptoms (Recalled from Triage Doc. by RN): PT STATES CLIMBING UP LADDER SLIPPED HITTING LOWER LIP ON TOP RAIL. LACERATION NOTED TO INSIDE LOWER LIP. PT DENIES ANY LOC OR FALL FROM LADDER HEENT Symptoms (Recalled from RN notes): Yes Resp Symptoms (Recalled from RN notes): No Skin Symptoms (Recalled from RN notes): No MS Symptoms (Recalled from RN notes): No Functional Status (Recalled from RN notes): WNL - History of Present Illness Provider Complaint: He states that earlier this evening he was climbing a ladder when his foot slipped. He came down with his chin on the rung of the ladder. It caused him to bite his lower lip. He has a laceration on the inside of his lower lip. He denies any tooth injury or chipping. - Related Data Previous Rx's Medication Instructions Recorded Amoxicillin/Potassium Clav 1 tab PO Q12H 10 Days #20 tab 04/25/21 [Augmentin 875-125 Tablet] Ibuprofen [Ibuprofen 800mg 800 mg PO Q8HP PRN #30 tab 04/25/21 Tablet] Allergies Allergy/AdvReac Type Severity Reaction Status Date / Time No Known Allergies Allergy Verified 04/25/21 17:20 - Worker's Comp Is this a Worker's Comp case?: No [facility] History - Hepatitis A Screen Drug use history?: No High risk sexual behaviors?: No History of sexually transmitted infection?: No Currently employed?: No Childcare worker?: No Do you have indoor plumbing?: Yes Do you have electricity?: Yes Attestation statement:: This patient has been screened for Hepatitis A risk factors. I have reviewed the patient's past medical history: Yes Medical History: Reports:: Kidney Stones Denies:: Cancer, Diabetes Mellitus Type 1, Diabetes Mellitus Type 2, Internal Pacemaker, MRSA Laterality Cases: Right: Arthroscopy Knee Other Surgeries: Yes: Other (Vasectomy). No: Pacemaker Amputation: No Fractures: No Comment: vasectomy, right ureteroscopy with laser lithotripsy of ureteral stone, stone extraction,right leg with metal estelita from knee to ankle - Social History Smoking S
[2021-04-25 18:11] VITALS: BP 114/81; PULSE 76; RESP 16; TEMP 37; O2SAT 98
== END 2021-04-25 18:19 | disposition home or self-care (01) ==
PROVIDERS: Emergency Provider Nurse Practitioner Family; PCP Nurse Practitioner Family
DX: S01.512A Laceration without foreign body of oral cavity, initial encounter (principal); S01.511A Laceration without foreign body of lip, initial encounter; W11.XXXA Fall on and from ladder, initial encounter; Y92.89 Other specified places as the place of occurrence of the external cause; Z87.442 Personal history of urinary calculi
CPT/HCPCS: 12011; 99202; G0463

== ENCOUNTER 2023-09-23 11:26 | Emergency (ER) | payer OTHER, SELFPAY ==
[2023-09-23 11:34] VITALS: BP 160/98; PULSE 63; RESP 16; TEMP 36.6; O2SAT 100; BMI 27.3
--- NOTE | 2023-09-23 11:50 | PC.NURSE ---
DR TORRES AT BEDSIDE
--- NOTE | 2023-09-23 11:51 | CT_ITS ---
PROCEDURE INFORMATION: Exam: CT Abdomen And Pelvis With Contrast Exam date and time: 09/23/2023 12:32 PM Age: 43 years old Clinical indication: Abdominal pain; Other: Left sided pain; Additional info: Left sided flank pain TECHNIQUE: Imaging protocol: Computed tomography of the abdomen and pelvis with contrast. Radiation optimization: All CT scans at this facility use at least one of these dose optimization techniques: automated exposure control; mA and/or kV adjustment per patient size (includes targeted exams where dose is matched to clinical indication); or iterative reconstruction. Contrast material: ISOVUE; Contrast volume: 75 ml; Contrast route: IV; REPORTING DATA: Count of CT and Cardiac NM exams in prior 12 months: This patient has received 0 known CTs and 0 known cardiac nuclear medicine studies in the 12 months prior to the current study. COMPARISON: CT ABDOMEN PELVIS WO CON 01/31/2021 9:29 PM FINDINGS: Lungs: Lung bases are unremarkable. Liver: There is a sharply demarcated hypodense region in the right hepatic lobe likely perfusional changes versus hepatic steatosis. Gallbladder and bile ducts: Gallbladder is distended without radiopaque cholelithiasis. No biliary ductal dilation. Pancreas: No peripancreatic fluid stranding. No main pancreatic ductal dilation. No peripancreatic fluid stranding. No main pancreatic ductal dilation. Spleen: No splenomegaly. No splenomegaly. Adrenal glands: The adrenal glands are normal. The adrenal glands are normal. Kidneys and ureters: Punctate nonobstructive nephrolithiasis. Left nephrogram is delayed. There is moderate left hydroureteronephrosis proximal to 7 x 7 x 8 mm calculus in the proximal ureter. Stomach and bowel: Bowel normal appendixThere is no evidence of free intraperitoneal or pelvic fluid. Appendix: No evidence of appendicitis. Intraperitoneal space: There is no evidence of free intraperitoneal or pelvic fluid. Vasculature: Scattered pelvic phleboliths noted Lymph nodes: No lymphadenopathy. Urinary bladder: Urinary bladder is unremarkable. Reproductive: Unremarkable as visualized. Bones/joints: No acute osseous abnormality. Soft tissues: Unremarkable. IMPRESSION: 1. Left nephrogram is delayed. There is moderate left hydroureteronephrosis proximal to 7 x 7 x 8 mm calculus in the proximal ureter. 2. Bilateral nonobstructive nephrolithiasis 3. There is a sharply demarcated hypodense region in the right hepatic lobe likely perfusional changes versus hepatic steatosis.
--- NOTE | 2023-09-23 11:51 | HMH.EDGENADL ---
Discharge Plan Disposition Patient Disposition: Home, Self-Care Condition: Fair Prescriptions Prescriptions: New ondansetron 4 mg tablet,disintegrating 4 mg PO Q6H PRN (Reason: nausea and vomiting) Qty: 20 0RF oxycodone 5 mg tablet 5 mg PO Q6H PRN (Reason: severe pain (scale score 7-10)) Qty: 10 0RF tamsulosin 0.4 mg capsule 0.4 mg PO DAILY Qty: 14 0RF No Action amoxicillin-pot clavulanate 1 EACH tablet 1 tab PO Q12H 10 Days Qty: 20 0RF ibuprofen 800 MG tablet 800 mg PO Q8HP PRN (Reason: Moderate Pain) Qty: 30 0RF Referrals Follow up/Referrals: Provider,Referral, MD [Primary Care Provider] - See instructions Activity Restrictions/Add. Instructions Additional Instructions/Restrictions: You were evaluated in the emergency department today for concerns of left flank pain. You have kidney stone. You need to make an appointment with Dr. Kauffman with urology. Call his office first thing Sunday for your appointment. It is extremely important that you see him soon. Tell him you have a 7 to 8 mm stone in your left ureter. You have been given Flomax as well as pain medications and nausea medications. Only take the narcotic pain medication if Tylenol is not controlling your pain well enough. Drink plenty of water. Follow-up with your primary care physician as well. Return to the emergency department with any new, worsening, or otherwise concerning symptoms. Clinical Impressions Clinical Impression: Ureterolithiasis Discharge ED Provider: Alicia Almanzar Adult HPI General Chief complaint: PAIN Stated complaint: lower back pain, Lt side pain Time Seen by Provider: 09/23/23 11:29 Mode of Arrival: Ambulatory Source of Information: Patient Limitations: No Limitations Description of Symptoms (Recalled from ER Triage Doc. by RN): pt presents with c/o left sided flank pain. symptoms began yesterday. pt has had similar episodes before, and he had kidney stones. History of Present Illness HPI narrative: This otherwise healthy 43-year-old male presents to the emergency department with concerns of left-sided back/flank pain. Patient states he has a history of prior kidney stones and this feels the exact same. Pain onset last night but became unbearable this morning. He is having nausea, vomiting, severe left-sided flank pain. He is diaphoretic. He states he has not taken any medications for his symptoms. Patient states he is not on any daily medications, no known drug allergies. He does smoke marijuana occasionally. No other illicit substances. Patient states he knows he has stones in his kidneys and has had to have a few of them broken up previously as they passed. Related Data Previous Rx's Medication Instructions Recorded amoxicillin 875 mg-potassium 1 tab PO Q12H 10 days #20 tabs 04/25/21 clavulanate 125 mg tablet ibuprofen 800 mg tablet 800 mg PO Q8HP PRN Moderate Pain 04/25/21 #30 tabs ondansetron 4 mg disintegrating 4 mg PO Q6H PRN nausea and 09/23/23 tablet vomiting #20 tabs oxycodone 5 mg tablet 5 mg PO Q6H PRN severe pain (scale 09/23/23 score 7-10) #10 tabs tamsulosin 0.4 mg capsule 0.4 mg PO DAILY #14 caps 09/23/23 Allergies Allergy/AdvReac Type Severity Reaction Status Date / Time No Known Allergies Allergy Verified 04/25/21 17:20 [facility] Disclaimer: The information contained in this section may have been updated after the patient was seen, as this information can be updated by other users. Social History Smoking Status: Former smoker alcohol intake: never substance use type: denies use current occupational status: employed Travel in the last 8 weeks: None household members: significant other and children housing: house current occupation: [employer] current occupational exposures/hazards: No caffeine: Yes ROS Obtained: Yes All systems reviewed & no additional complaints ex
[2023-09-23 12:02] LABS: Chloride 105 mmol/L (98-107); Sodium 141 mmol/L (136-145)
[2023-09-23 12:03] LABS: Potassium 3.5 mmoL/L (3.5-5.1)
[2023-09-23 12:05] LABS: Alanine Aminotransferase 18 U/L (12-78); Alkaline Phosphatase 93 U/L (38-126); Aspartate Amino Transferase 29 U/L (17-59); Bilirubin,Total 0.8 mg/dl (0.2-1.3); Blood Urea Nitrogen 12 mg/dl (9-20); Creatinine Clearance Estimated 101 mL/min (50-200); Estimated Glomerular Filt Rate 73 ml/min (>60); GFR (African American) 89 ML/MIN (>60)
[2023-09-23 12:06] LABS: Albumin Level 4.7 g/dl (3.5-5.0); Albumin/Globulin Ratio 1.3 (1.1-1.8); Anion Gap 10.5 mEq/L (5-15); Carbon Dioxide 29 mmol/L (22.0-30.0); Globulin 3.5 g/dL (1.3-3.2); Glucose 118 mg/dl (74-100); Total Protein,Serum 8.2 g/dl (6.3-8.2)
[2023-09-23 12:19] LABS: Basophils % 0.2 % (0.1-2.0); Eosinophils # 0.1 K/mm3 (0.0-0.4); Eosinophils % 1.2 % (0.1-12.0); Hematocrit 43.6 % (42.0-52.0); Hemoglobin 15.5 g/dL (14.1-18.0); Lymphocytes # 1.7 K/mm3 (0.7-4.5); Lymphocytes % 19.1 % (10-50); Mean Corpuscular HGB Conc 35.7 g/dL (31.8-35.4); Mean Corpuscular Hemoglobin 30.7 pg (27.0-31.2); Mean Platelet Volume 8.5 fl (7.4-10.4); Monocytes # 0.4 K/mm3 (0.1-1.0); Monocytes % 4.1 % (1.7-9.3); Neutrophils # 6.5 K/mm3 (1.8-7.8); Neutrophils % 75.4 % (37.0-80.0); Platelet Count 204 K/mm3 (142-424); Red Blood Count 5.07 M/mm3 (4.60-6.20); Red Cell Distribution Width 13.1 % (11.5-17.5); White Blood Count 8.6 K/mm3 (4.8-10.8)
--- NOTE | 2023-09-23 12:26 | PC.NURSE ---
PT TO CT
[2023-09-23 12:28] LABS: Microscopic, Urine URINE MICROSCOPIC (MICROSCOPIC)
[2023-09-23 12:30] LABS: Appearance,Urine SL CLOUDY (Clear); Blood, Urine 3+ (Negative); Color,Urine YELLOW (Yellow); Glucose,Urine (UA) Negative (Negative); Ketones,Urine Negative (Negative); Leukocyte Esterase,Urine Negative (Negative); Nitrate,Urine Negative (Negative); Protein,Urine 1+ (Negative); Specific Gravity, Urine >= 1.030 (1.005-1.030); Urobilinogen,Urine 0.2 EU/dl (0.2)
[2023-09-23 12:40] LABS: Bilirubin,Urine 1+ (Negative)
[2023-09-23 12:42] LABS: Squamous Epithelial Cell,Urine Occasional #/hpf (0-5); WBC,Urine Occasional #/hpf (0-3)
[2023-09-23 13:38] VITALS: BP 111/73; PULSE 53; O2SAT 95
--- NOTE | 2023-09-23 14:20 | PC.NURSE ---
DR TORRES AT BEDSIDE TO UPDATE PT AND FAMILY
[2023-09-23 14:47] VITALS: BP 140/79; PULSE 78; RESP 20; TEMP 36.7; O2SAT 97
== END 2023-09-23 14:51 | disposition home or self-care (01) ==
PROVIDERS: Emergency Provider Emergency Medicine
DX: N13.0 Hydronephrosis with ureteropelvic junction obstruction (principal); N20.1 Calculus of ureter; M54.59 Other low back pain; R10.32 Left lower quadrant pain; R11.2 Nausea with vomiting, unspecified; Z87.891 Personal history of nicotine dependence
CPT/HCPCS: 74177; 80053; 81001; 85025; 96361; 96374; 96375; 99285; J2405; Q9967

== ENCOUNTER 2023-09-24 19:24 | Emergency (ER) | payer SELFPAY ==
[2023-09-24 19:31] VITALS: BP 164/94; PULSE 67; O2SAT 99
[2023-09-24 19:32] VITALS: BP 164/94; PULSE 67; RESP 20; TEMP 37.2; O2SAT 99; BMI 27.3
--- NOTE | 2023-09-24 20:34 | HMH.EDGENADL ---
Discharge Plan Disposition Patient Disposition: Home, Self-Care Prescriptions Prescriptions: New ibuprofen 800 mg tablet 800 mg PO TID PRN (Reason: pain) 7 Days Qty: 20 0RF No Action ondansetron 4 mg tablet,disintegrating 4 mg PO Q6H PRN (Reason: nausea and vomiting) Qty: 20 0RF oxycodone 5 mg tablet 5 mg PO Q6H PRN (Reason: severe pain (scale score 7-10)) Qty: 10 0RF tamsulosin 0.4 mg capsule 0.4 mg PO DAILY Qty: 14 0RF Referrals Follow up/Referrals: Provider,Referral, MD [Primary Care Provider] - See instructions Activity Restrictions/Add. Instructions Additional Instructions/Restrictions: If your symptoms recur please follow-up at an emergency department with urology coverage as discussed. You also should call Dr. Kauffman tomorrow with the phone number that was provided to you make an appointment with next available appointment. Clinical Impressions Clinical Impression: Hydronephrosis concurrent with and due to calculi of kidney and ureter, Intractable pain Instructions Patient Instructions: DI for Acute Abdominal Pain Discharge ED Provider: Chasity Mendoza General Adult HPI General Chief complaint: Abdominal Pain Stated complaint: kidney stones Time Seen by Provider: 09/24/23 20:29 Mode of Arrival: Ambulatory Limitations: No Limitations Description of Symptoms (Recalled from ER Triage Doc. by RN): Pt ambulatory to ED. States he was her in the ER last night and was dx with 7mm left kidney stone. Pt c/o left flank pain and left groin pain. Pt states he cant pass it . Pt denies urinary sx History of Present Illness HPI narrative: Patient is a 43-year-old male with a history of multiple kidney stones in the past has had to have lithotripsy presents today with refractory symptoms after being discharged yesterday with a diagnosis of a proximal ureteral 7 mm left sided kidney stone with hydroureteronephrosis. Patient denies any fevers or chills or any history of any urinary tract infection recently. States that he was prescribed pain medicine to go home with which did not resolve his pain. Pain is currently severe. Related Data Previous Rx's Medication Instructions Recorded ondansetron 4 mg disintegrating 4 mg PO Q6H PRN nausea and 09/23/23 tablet vomiting #20 tabs oxycodone 5 mg tablet 5 mg PO Q6H PRN severe pain (scale 09/23/23 score 7-10) #10 tabs tamsulosin 0.4 mg capsule 0.4 mg PO DAILY #14 caps 09/23/23 ibuprofen 800 mg tablet 800 mg PO TID PRN pain 7 days #20 09/24/23 tabs Allergies Allergy/AdvReac Type Severity Reaction Status Date / Time No Known Allergies Allergy Verified 04/25/21 17:20 [facility] Disclaimer: The information contained in this section may have been updated after the patient was seen, as this information can be updated by other users. Social History Smoking Status: Unknown if ever smoked alcohol intake: never substance use type: denies use current occupational status: employed Travel in the last 8 weeks: None household members: significant other and children housing: house current occupation: [employer] current occupational exposures/hazards: No caffeine: Yes ROS Obtained: Yes All systems reviewed & no additional complaints except as documented Physical Exam General General appearance: alert Respiratory Respiratory exam: Present normal lung sounds bilaterally; Absent respiratory distress Cardiovascular Cardiovascular exam: Present regular rate; Absent tachycardia Abdominal Exam Abdominal exam: Present soft; Absent distention or tenderness Back Exam Back exam: Absent CVA tenderness (R) or CVA tenderness (L) Neurological Exam Neurological exam: Present alert and oriented X3 Medical Decision Making Bryan Inquiry Pt receiving controlled substance: No Vital Signs: 09/24/23 19:32 09/24/23 19:31 09/24/23 20:54 Temperature 98.9 F Temperature Source Oral
[2023-09-24 20:51] LABS: Basophils % 0.2 % (0.1-2.0); Chloride 105 mmol/L (98-107); Eosinophils # 0.1 K/mm3 (0.0-0.4); Eosinophils % 0.9 % (0.1-12.0); Hematocrit 38.3 % (42.0-52.0); Hemoglobin 14.1 g/dL (14.1-18.0); Lymphocytes # 1.7 K/mm3 (0.7-4.5); Lymphocytes % 16.2 % (10-50); Mean Corpuscular HGB Conc 36.7 g/dL (31.8-35.4); Mean Corpuscular Hemoglobin 31.2 pg (27.0-31.2); Mean Corpuscular Volume 84.8 fl (80-94); Mean Platelet Volume 8.9 fl (7.4-10.4); Monocytes # 0.5 K/mm3 (0.1-1.0); Monocytes % 4.7 % (1.7-9.3); Neutrophils # 8.2 K/mm3 (1.8-7.8); Neutrophils % 77.9 % (37.0-80.0); Platelet Count 192 K/mm3 (142-424); Potassium 3.4 mmoL/L (3.5-5.1); Red Blood Count 4.52 M/mm3 (4.60-6.20); Sodium 140 mmol/L (136-145); White Blood Count 10.5 K/mm3 (4.8-10.8)
[2023-09-24 20:54] VITALS: BP 101/60; PULSE 65; O2SAT 100
[2023-09-24 20:54] LABS: Alanine Aminotransferase 17 U/L (12-78); Albumin Level 4.4 g/dl (3.5-5.0); Albumin/Globulin Ratio 1.4 (1.1-1.8); Alkaline Phosphatase 78 U/L (38-126); Anion Gap 8.4 mEq/L (5-15); Aspartate Amino Transferase 29 U/L (17-59); Bilirubin,Total 0.3 mg/dl (0.2-1.3); Blood Urea Nitrogen 16 mg/dl (9-20); Carbon Dioxide 30 mmol/L (22.0-30.0); Creatinine Clearance Estimated 85 mL/min (50-200); Estimated Glomerular Filt Rate 61 ml/min (>60); GFR (African American) 73 ML/MIN (>60); Globulin 3.2 g/dL (1.3-3.2); Total Protein,Serum 7.6 g/dl (6.3-8.2)
--- NOTE | 2023-09-24 20:54 | PC.NURSE ---
Pt was given urinal. Pt states he cant go.
[2023-09-24 20:55] LABS: Calcium 8.7 mg/dl (8.4-10.2); Glucose 101 mg/dl (74-100)
[2023-09-24 22:00] VITALS: BP 118/77; PULSE 57; RESP 18; TEMP 36.9; O2SAT 98
[2023-09-24 22:45] LABS: Microscopic, Urine URINE MICROSCOPIC (MICROSCOPIC)
[2023-09-24 22:47] LABS: Appearance,Urine CLOUDY (Clear); Bilirubin,Urine Negative (Negative); Blood, Urine 3+ (Negative); Color,Urine YELLOW (Yellow); Glucose,Urine (UA) Negative (Negative); Ketones,Urine Negative (Negative); Leukocyte Esterase,Urine TRACE (Negative); Nitrate,Urine Negative (Negative); Protein,Urine 1+ (Negative); Specific Gravity, Urine 1.025 (1.005-1.030); Urobilinogen,Urine 0.2 EU/dl (0.2)
[2023-09-24 23:02] LABS: Bacteria,Urine Trace /lpf; RBC,Urine 50-100 #/hpf (0-3); Squamous Epithelial Cell,Urine Occasional #/hpf (0-5); WBC,Urine Occasional #/hpf (0-3)
== END 2023-09-24 21:55 | disposition home or self-care (01) ==
PROVIDERS: Emergency Provider Student in an Organized Health Care Education/Training Program
DX: R10.0 Acute abdomen (principal); N13.2 Hydronephrosis with renal and ureteral calculous obstruction
CPT/HCPCS: 80053; 81001; 85025; 96361; 96374; 96375; 99285; J2405